=== PATIENT | female | born 1950 | race Two or more races ===

== ENCOUNTER 2016-06-02 09:39 | Day surgery (SDC) | payer MEDICARE, OTHER, MEDICAID ==
[2016-06-02] MEDS ORDERED: IV START KIT ONE (10:15)
[2016-06-02] MEDS ORDERED: LACTATED RINGERS 1,000 ML ONE (10:15)
[2016-06-02] MEDS ORDERED: PROPOFOL 20 ML IV ONE (11:38)
== END 2016-06-02 12:41 | disposition home or self-care (01) ==
LOC: SDC 09:39
PROVIDERS: ATTEND Internal Medicine Gastroenterology
PROC: 0DJD8ZZ Inspection of Lower Intestinal Tract, Via Natural or Artificial Opening Endoscopic (ICD-10-PCS; principal; 2016-06-02)
DX: Z08 Encounter for follow-up examination after completed treatment for malignant neoplasm (principal); Z85.038 Personal history of other malignant neoplasm of large intestine; D50.9 Iron deficiency anemia, unspecified; Z80.0 Family history of malignant neoplasm of digestive organs; I10 Essential (primary) hypertension; M81.0 Age-related osteoporosis without current pathological fracture; F20.9 Schizophrenia, unspecified; G40.909 Epilepsy, unspecified, not intractable, without status epilepticus; E55.9 Vitamin D deficiency, unspecified
CPT/HCPCS: J7120; G0105